=== PATIENT | female | born 1985 | race American Indian/Alaskan Native ===

== ENCOUNTER 2018-01-01 00:33 | Emergency (ER) | payer OTHER ==
[2018-01-01 02:34] LABS: HCG Qualitative,Urine Positive (Negative)
[2018-01-01] MEDS ORDERED: ZOFRAN ODT PO ONE (05:15)
[2018-01-01] MEDS ORDERED: TYLENOL PO ONE (05:22)
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
[2018-01-01 05:51] VITALS: BP 130/76
== END 2018-01-01 05:51 | disposition home or self-care (01) ==
LOC: EDSEX → ED 00:33
DX: S16.1XXA Strain of muscle, fascia and tendon at neck level, initial encounter (principal); Z88.6 Allergy status to analgesic agent; V49.59XA Passenger injured in collision with other motor vehicles in traffic accident, initial encounter; Y93.89 Activity, other specified; Y92.488 Other paved roadways as the place of occurrence of the external cause; Y99.8 Other external cause status
CPT/HCPCS: 81025; 99283; Q0162